=== PATIENT | female | born 1960 | race American Indian/Alaskan Native ===

== ENCOUNTER 2017-04-14 20:24 | Emergency (ER) | payer OTHER ==
--- NOTE | 2017-04-15 01:58 | Emergency Department Report ---
ED Rash HPI - HPI Chief Complaint: Skin Rash Stated Complaint: BITE UNKNOWN Time Seen by Provider: 04/15/17 01:57 Duration: Today Location: Lower Extremities (Lt foot and ankle) Suspected Cause: Insect Rash Symptoms: Yes Itching, No Facial Swelling, No Tongue/Oral Swelling, No Breathing Difficulties, No Choking Sensation, No Wheezing/Dyspnea, No Peeling, No Blistering, No Fever, No Lightheaded, No Malaise, No Myalgias Severity: moderate (12/14) Other History: Sent here report that she has a insect bite on her left inner ankle and now she is having redness and swelling. She is not sure what cut and bit her. She reports pain 6 of the tendon ache in her ankle. Tetanus vaccine is up-to-date and says she took Motrin but it didn't help. Denies any nausea or vomiting. She said this has been going on for 3 days. Denies any numbness or tingling or loss of sensation to injured area. Denies any fever or chills. Denies any respiratory symptoms. ED Review of Systems ROS: Stated complaint: BITE UNKNOWN Other details as noted in HPI Comment: All other systems reviewed and negative Constitutional: no symptoms reported ENT: denies: throat pain, congestion Respiratory: no symptoms reported Cardiovascular: denies: chest pain, palpitations, dyspnea on exertion, orthopnea , edema, syncope Gastrointestinal: denies: abdominal pain, nausea, vomiting Musculoskeletal: joint swelling. denies: back pain, arthralgia, myalgia Skin: as per HPI, rash (inset bites, redness and swelling to ankle and left foot ) Neurological: denies: headache, numbness, paresthesias, confusion, abnormal gait , vertigo ED Past Medical Hx - Past Medical History Previous Medical History?: Yes Hx Hypertension: Yes - Surgical History Past Surgical History?: Yes Additional Surgical History: tubiligation - Family History Family history: hypertension - Social History Smoking Status: Current Every Day Smoker Substance Use Type: Alcohol - Medications Home Medications: Home Medications Medication Instructions Recorded Confirmed Last Taken Type Sulfamethoxazole/Trimethoprim 1 each PO BID #20 tablet 04/15/17 Unknown Rx [Bactrim DS TAB] traMADol [Ultram] 50 mg PO Q6HR PRN #12 tablet 04/15/17 Unknown Rx Rash Exam - Exam General: Vital signs noted. No distress. Alert and acting appropriately. This is a 57-year-old female well-nourished well-developed in no acute distress. Patient is nontoxic in appearance HEENT: No Periorbital Edema, No Conjuctival Injection, No Chemosis, No Perioral Edema, No Tongue Edema, No Uvular Edema, No Compromised Airway, No Drooling Lungs: Yes Good Air Exchange, No Wheezes, No Ronchi, No Stridor, No Cough, No Labored Respirations, No Retractions, No Use of Accessory Muscles, No Other Abnormal Lung Sounds Heart: Yes Regular, No Murmur Skin: Yes Tenderness (left ankle with point of entry to left inner ankle), Yes Erythema (mild erythema noted around left ankle inner area with some erythema to left foot.), Yes Edema (mild swelling to left inner ankle and left inner foot.), No Urticarial Rash, No Maculopapular Rash, No Morbilliform rash, No Bulla(e), No Excoriations, No Weeping, No Encrustations, No Other Other: Positive: Abdomen Normal, Neurologic Normal, Musculoskeletal Normal ED Course Vital Signs 04/14/17 04/14/17 20:28 20:30 Temperature 98.5 F 98.5 F Pulse Rate 63 Respiratory 18 18 Rate Blood Pressure 153/96 153/96 O2 Sat by Pulse 100 Oximetry - Reevaluation(s) Reevaluation #1: 04/15/17 03:06 given Cleocin 600 mg exam, strict 0.5 mL IM and Motrin 800 mg IM. No adverse reaction noted. Affected ear cleansed with normal saline and sterile dry just simply subside. ED Medical Decision Making - Medical Decision Making ED course: Patient here complaining of insect bite to her left inner ankle 3 days ago which is getting red and swollen. She denies any loss of sensation or any difficulty weight bearing. She says she is worried because it started getting red. She says she tried [id number] Motrin but is not helping. Patient was given clindamycin 600 mg IM, booster 0.5 mL IM and Motrin 800 mg when necessary emergency room. She had no adverse reaction. Clinical findings for mild cellulitis to left ankle and foot secondary to insect bite. I discussed the patient's that I will put her on antibiotic and anti-inflammatory and she will need to follow up with her primary care physician in 2-3 days. Her primary care physician is Dr. Gato Prescott. She voiced understanding of discharge diagnoses and treatment plan and discharged home a prescription for Ultram and Bactrim DS Critical care attestation.: If time is entered above; I have spent that time in minutes in the direct care of this critically ill patient, excluding procedure time. ED Disposition Clinical Impression: Cellulitis of left ankle, Arthralgia of multiple sites Insect bite Qualifiers: Encounter type: initial encounter Qualified Code(s): W57.XXXA - Bitten or stung by nonvenomous insect and other nonvenomous arthropods, initial encounter Disposition: TO HOME OR SELFCARE Is pt being admited?: No Does the pt Need Aspirin: No Condition: Stable Instructions: Cellulitis (ED), Knee Pain (ED), Insect Bite or Sting (ED) Additional Instructions: Keep affected ear clean and dry Take antibiotic as prescribed and this antibiotic is free at [facility] If you notice increasing redness, swelling, fever and/or chills and restriction in movement please return to the emergency room ALEX otherwise follow-up with your primary care physician in 2-3 days Prescriptions: Sulfamethoxazole/Trimethoprim [Bactrim DS TAB] 1 each PO BID #20 tablet traMADol [Ultram] 50 mg PO Q6HR PRN #12 tablet PRN Reason: Pain Referrals: GATO PRESCOTT MD [Primary Care Provider] - 2-3 Days Forms: Work/School Release Form(ED)
[2017-04-15] MEDS ORDERED: BOOSTRIX IM ONE (02:13)
[2017-04-15] MEDS ORDERED: CLEOCIN IM ONE (02:13)
[2017-04-15] MEDS ORDERED: MOTRIN PO ONE (02:14)
[2017-04-15 11:34] VITALS: BP 140/96
== END 2017-04-15 03:15 | disposition home or self-care (01) ==
LOC: ED 20:24
DX: S90.562A Insect bite (nonvenomous), left ankle, initial encounter (principal); L03.116 Cellulitis of left lower limb; M25.50 Pain in unspecified joint; I10 Essential (primary) hypertension; F17.200 Nicotine dependence, unspecified, uncomplicated; W57.XXXA Bitten or stung by nonvenomous insect and other nonvenomous arthropods, initial encounter; Y93.9 Activity, unspecified; Y99.9 Unspecified external cause status; Y92.89 Other specified places as the place of occurrence of the external cause
CPT/HCPCS: 90471; 90715; 96372